=== PATIENT | male | born 1955 | race Two or more races ===

== ENCOUNTER 2022-06-03 17:26 | Emergency (ER) | payer OTHER ==
[~2022-06-03] VITALS: Ht 165.1 cm; Wt 68.0 kg
[2022-06-03 19:07] VITALS: BP 141/88
== END 2022-06-03 21:54 | disposition left against medical advice (07) ==
LOC: EDBD 17:26 → ER 17:33
DX: M54.2 Cervicalgia (principal); M54.50 Low back pain, unspecified; Z53.21 Procedure and treatment not carried out due to patient leaving prior to being seen by health care provider